=== PATIENT | female | born 1995 | race Caucasian/White ===

== ENCOUNTER 2019-01-30 19:04 | Emergency (ER) | payer MEDICAID ==
[~2019-01-30] VITALS: Ht 160 cm; Wt 104.3 kg
[~2019-01-30 19:04] MED LIST: CIPRO500 M1 PO; CIPRO500 MG PO; PHENAZOPYRIDIN200 M2 PO
[2019-01-30] MEDS ORDERED: ACETAMINOPHEN-1 EAC1 PO (19:55)
[2019-01-30] MEDS ORDERED: IBUPROFEN 800800 MG PO (19:55)
[2019-01-30 20:28] VITALS: BP 119/77
== END 2019-01-30 20:28 | disposition home or self-care (01) ==
LOC: M.ERS 19:04
DX: S62.635A Displaced fracture of distal phalanx of left ring finger, initial encounter for closed fracture (principal); F17.210 Nicotine dependence, cigarettes, uncomplicated; W10.9XXA Fall (on) (from) unspecified stairs and steps, initial encounter; Y92.89 Other specified places as the place of occurrence of the external cause; Y93.89 Activity, other specified; Y99.8 Other external cause status

== ENCOUNTER 2020-10-18 08:47 | Emergency (ER) | payer OTHER ==
[~2020-10-18] VITALS: Ht 160 cm; Wt 99.8 kg
[~2020-10-18 08:47] MED LIST changes: +ACETAMINOPHEN-1 EAC1 PO; +IBUPROFEN 800800 MG PO
[2020-10-18] MEDS ORDERED: AUGMENTIN 875-1 EACH PO (09:46)
[2020-10-18 10:10] VITALS: BP 138/81
== END 2020-10-18 10:05 | disposition home or self-care (01) ==
LOC: M.ERS 08:47
DX: J02.0 Streptococcal pharyngitis (principal); F17.210 Nicotine dependence, cigarettes, uncomplicated